=== PATIENT | male | born 1990 | race American Indian/Alaskan Native ===

== ENCOUNTER 2021-02-02 06:18 | Emergency (ER) | payer BC, MEDICAID ==
[2021-02-02 06:44] VITALS: BP 138/79
== END 2021-02-02 08:00 | disposition left against medical advice (07) ==
LOC: ED 06:18
DX: S41.112A Laceration without foreign body of left upper arm, initial encounter (principal); R51.9 Headache, unspecified; Z53.21 Procedure and treatment not carried out due to patient leaving prior to being seen by health care provider; W25.XXXA Contact with sharp glass, initial encounter; Y93.89 Activity, other specified; Y92.89 Other specified places as the place of occurrence of the external cause; Y99.8 Other external cause status